=== PATIENT | male | born 1970 | race Caucasian/White ===

== ENCOUNTER 2024-01-07 10:21 | Outpatient (REF) | payer OTHER, SELFPAY ==
[2024-01-07 15:03] LABS: Alanine Aminotransferase 33 U/L (0-40); Albumin Level 4.3 g/dL (3.5-5.0); Alkaline Phosphatase 65 U/L (39-117); Anion Gap 16 (12-20); Aspartate Amino Transferase 21 U/L (5-37); Bilirubin Total 0.9 mg/dL (0.0-1.0); Blood Urea Nitrogen 16 mg/dL (9-16); Calcium 9.8 mg/dL (8.4-10.2); Carbon Dioxide 26 mmol/L (22-29); Chloride 97 mmol/L (96-108); Cholesterol 125 mg/dL (<200); Estimated Glomerular Filt Rate > 60; Glucose Random 86 mg/dL (60-115); HDL Cholesterol 48 mg/dL (>40); LDL Cholesterol Calculated 52 mg/dL (<100); Potassium 3.5 mmol/L (3.3-5.1); Sodium 135 mmol/L (135-145); Total Protein 7.7 g/dL (6.5-8.0); Triglycerides 127 mg/dL (<150)
[2024-01-08 04:13] LABS: ~HepC Num1 0.12 S/CO (0.00-0.79); ~Hepatitis C Antibody Nonreactive (Nonreactive)
[2024-01-11 19:43] LABS: HIV RNA PCR Qn Copies Not Detected Copies/mL; HIV RNA PCR Qn Log Copies Not Detected Log cps/mL
== END 2024-01-07 10:22 | disposition home or self-care (01) ==
LOC: HO.CHCLDS 10:21
PROVIDERS: Visit Provider Internal Medicine
DX: E11.42 Type 2 diabetes mellitus with diabetic polyneuropathy (principal)
CPT/HCPCS: 36415; 80053; 80061; 86803; 87536; 87900

== ENCOUNTER 2024-01-28 16:06 | Outpatient (REF) | payer OTHER, SELFPAY ==
--- NOTE | ~2024-01-28 | US_ITS ---
EXAMINATION: US SOFT TISSUE OF THE NECK CLINICAL INFORMATION: Right neck cyst versus lipoma. COMPARISON: Head and neck CTA November 2017. TECHNIQUE: Linear transducer grayscale and color Doppler examination of the right lateral neck. FINDINGS: There is a well-defined oval-shaped 1.6 x 1 x 0.5 cm hypoechoic lesion in the right lateral neck corresponding to palpable abnormality. This has focal central echogenic component questionable for calcification. This appears avascular. This may correspond to a lesion in the subcutaneous fat of the right lateral neck which measures 1 x 2 x 1.8 cm axial image 73 series 6 and coronal reconstructed image [address] November 2017. Ultrasound appearance is nonspecific. Differential would include abnormal lymph node or abscess or atypical-appearing lipoma. US/US soft tiss head and/or neck IMPRESSION: Well-defined oval-shaped 1.6 x 1 x 0.5 cm hypoechoic lesion with central calcification in the right lateral subcutaneous neck corresponding to palpable abnormality. Ultrasound appearance is nonspecific. This could represent an abnormal lymph node, abscess or atypical lipoma. This may be seen on old head and neck CTA from 2018. Additional imaging with CT or MRI of the soft tissues of the neck could be performed. Alternatively, this would be amenable to ultrasound-guided aspiration/biopsy.
== END 2024-01-28 16:07 | disposition home or self-care (01) ==
LOC: HO.US 16:06
PROVIDERS: PCP Family Medicine; Visit Provider Internal Medicine
DX: D36.7 Benign neoplasm of other specified sites (principal)
CPT/HCPCS: 76536